=== PATIENT | male | born 1945 | race Caucasian/White ===

== ENCOUNTER → 2016-08-05 | Outpatient (CLI) | payer MEDICARE, OTHER ==
--- OUTSIDE RECORDS SUMMARY | 2016-08-05 15:27 | XMS REPORT | Continuity of Care Document ---
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 Indications: The patient had a raised,rolled up lesion with some slight keratotic tendency. This measured approximately 0.4 cm x 0.2 cm. It was approximately 1 cm from the takeoff of the helix along the undersurface of the anterior superior helical rim. Procedure in Detail: Consent was obtained. The area was prepped with Betadine. Xylocaine 1%, Marcaine 0.25% was infiltrated. Total volume was approximately 2 mL. At this point then, a tangential, superficial incision was made with a 15 blade down to the epidermal dermal junction. Hemostasis was obtained with the Bovie apparatus. The wound edges were approximately with 5-0 Vicryl suture. Specimen sent for permanent histopathology. Antibiotic ointment and sterile gauze dressing was applied. The patient tolerated this procedure. Return here in 10 days. Dictated By: Eileen Blanco MD DICTATED BY: Eileen Blanco cc: TR: [id number] DR: 09/30/2010 17:24:12 DE: 09/30/2010 22:02:28 JOB#: [id number] [Electronically Signed on 10.01.2010 04:37 pm] Eileen Blanco MD, MD </br> 09/29/2010 [Electronically Signed on 10.01.2010 04:37 pm] Eileen Blanco MD, MD [facility] Vital Signs Encounters Location Location Details Encounter Type Encounter Number Reason For Visit Attending Provider ADM Date DC Date Status Source [facility] [id number] PT CALLED./LEFT EAR EXC/POSS BX EILEEN BLANOC 03/2011 Active [facility] ( Outpatient) [id number] path EILEEN BLANCO 09/30/2010 09/30/2010 Active [facility] [id number] STITCH REMOVAL EILEEN BLANCO 10/07/2010 [facility] [id number] SCREEN FOR INSURANCE Blaise Johnson 11/19/2010 11/19/2010 Active [facility] Procedures Plan of Care Social History Assessment and Plan Family History Value Date Source Advance Directives Order Name Results Value Date Source
== END ==
LOC: RT 15:23
PROVIDERS: ATTEND Nurse Practitioner Family
DX: R06.00 Dyspnea, unspecified (principal)
CPT/HCPCS: 94060; 94726; 94729

== ENCOUNTER → 2016-09-28 | Outpatient (CLI) | payer OTHER, MEDICARE ==
[2016-09-28 12:37] LABS: BASOPHILS % (AUTO) 0 % (0-10); EOSINOPHILS # (AUTO) 0.2 10^3/uL (0.0-0.3); EOSINOPHILS % (AUTO) 2 % (0-10); LYMPHOCYTES # (AUTO) 1.5 X 10^3 (1.0-4.0); LYMPHOCYTES % (AUTO) 15 % (12-44); MEAN CORPUSCULAR HEMOGLOBIN 32 PG (25-34); MEAN CORPUSCULAR HGB CONC 35 G/DL (32-36); MEAN CORPUSCULAR VOLUME 92 FL (80-99); MEAN PLATELET VOLUME 9.9 FL (7.4-10.4); MONOCYTES # (AUTO) 0.8 X 10^3 (0.0-1.0); MONOCYTES % (AUTO) 8 % (0-12); NEUTROPHILS # (AUTO) 7.4 X 10^3 (1.8-7.8); NEUTROPHILS % (AUTO) 75 % (42-75); PLATELET COUNT 198 10^3/uL (130-400); RED BLOOD COUNT 4.47 10^6/uL (4.35-5.85); WHITE BLOOD COUNT 9.9 10^3/uL (4.3-11.0)
[2016-09-28 12:54] LABS: ALANINE AMINOTRANSFERASE 34 U/L (0-55); ALBUMIN 4.3 G/DL (3.2-4.5); ANION GAP 9 MMOL/L (5-14); ASPARTATE AMINO TRANSFERASE 21 U/L (5-34); BILIRUBIN,TOTAL 0.8 MG/DL (0.1-1.0); BLOOD UREA NITROGEN 25 MG/DL (7-18); BUN/CREATININE RATIO 23; CALCIUM 9.2 MG/DL (8.5-10.1); CARBON DIOXIDE 22 MMOL/L (21-32); CHLORIDE 107 MMOL/L (98-107); CREATININE SERUM 1.07 MG/DL (0.60-1.30); GFR ESTIMATED > 60; GLUCOSE 96 MG/DL (70-105); POTASSIUM 3.8 MMOL/L (3.6-5.0); SODIUM 138 MMOL/L (135-145); TOTAL PROTEIN 6.7 G/DL (6.4-8.2)
[2016-09-28 13:49] LABS: THYROID STIMULATING HORMONE 2.07 UIU/ML (0.35-4.94)
== END ==
LOC: CARD 11:59
PROVIDERS: ATTEND Internal Medicine
DX: R55 Syncope and collapse (principal)
CPT/HCPCS: 36415; 80053; 84443; 85025

== ENCOUNTER 2016-09-29 07:59 | Outpatient (RCR) | payer OTHER, MEDICARE | END 2016-12-28 | disposition home or self-care (01) | LOC: CARD 07:59 | PROVIDERS: ATTEND Internal Medicine | DX: R55 Syncope and collapse (principal) | CPT/HCPCS: 93225; 93226 ==

== ENCOUNTER → 2016-09-30 | Outpatient (CLI) | payer OTHER, MEDICARE ==
--- NOTE | 2016-10-03 13:25 | ECHOCARDIOGRAPHY REPORT ---
DATE OF SERVICE: 09/30/2016 A 2D ECHOCARDIOGRAM REFERRING PHYSICIAN: Dr. Barragan. MEASUREMENT: LVID end diastolic 4.5. IVS thickness 1.3. LVPW thickness 1.3. Left atrial diameter 4.0. Ejection fraction 60%. FINDINGS: 1. Technically difficult study. 2. The left ventricle is normal in size with mild to moderate left ventricular hypertrophy noted diffusely. Systolic function appeared to be normal. Estimated ejection fraction 60%. 3. The left atrium is in the upper normal limit in size. No clot or thrombus were seen within the left atrium. 4. The right atrium and right ventricle are normal in size. No clot or thrombus were seen within the right side. 5. Mitral valve is normal in morphology with mild mitral regurgitation noted by color Doppler flow. No mitral valve prolapse. No mitral valve stenosis. 6. Aortic valve leaflets were not well visualized. There is no significant aortic valve stenosis or regurgitation was seen. 7. Tricuspid valve leaflets were not well visualized. Mild tricuspid regurgitation was noted, Doppler across the tricuspid valve estimated pulmonary artery pressure of 24 plus right atrial pressure. 8. Pulmonic valve is functioning normally. 9. No pericardial effusion. CONCLUSION: 1. Normal left ventricular size, endocardium was not well visualized in all segments. Overall, systolic function appeared to be normal, estimated ejection fraction 60%. 2. Mild mitral regurgitation. 3. Estimated pulmonary artery pressure of 30 mmHg. Job ID: [id number] DocumentID: [id number] Dictated Date: 10/03/2016 08:17:34 Business Advisor Date: 10/03/2016 10:20:53 Dictated By: ENRY MATA MD
== END ==
LOC: CARD 14:22
PROVIDERS: ATTEND Internal Medicine Cardiovascular Disease
DX: I10 Essential (primary) hypertension (principal); G47.33 Obstructive sleep apnea (adult) (pediatric); E78.5 Hyperlipidemia, unspecified; R55 Syncope and collapse; I34.0 Nonrheumatic mitral (valve) insufficiency
CPT/HCPCS: 93306

== ENCOUNTER → 2016-10-03 | Outpatient (CLI) | payer OTHER, MEDICARE ==
[~2016-10-03] MED LIST: CATHETER FLUSH 10 ML SYR IV PRN; REGADENOSON 0.4 MG/5 ML SYR (LEXISCAN) IV ONE
== END ==
LOC: CARD 08:28
PROVIDERS: ATTEND Internal Medicine Cardiovascular Disease
DX: R55 Syncope and collapse (principal); E78.5 Hyperlipidemia, unspecified; I10 Essential (primary) hypertension; G47.33 Obstructive sleep apnea (adult) (pediatric)

== ENCOUNTER → 2016-10-05 | Outpatient (CLI) | payer OTHER, MEDICARE ==
[2016-10-05 13:10] VITALS: BP 143/83
--- NOTE | 2016-10-07 07:51 | STRESS TEST ---
DATE OF SERVICE: 10/05/2016 LEXISCAN MYOVIEW STRESS TEST REPORT REFERRING PHYSICIAN: Dr. Barragan. INDICATION: Syncope. Baseline heart rate is 70. Baseline blood pressure is 143/65. Baseline EKG is sinus rhythm with no ischemic changes. In summary, the patient was injected with 10.93 mCi of technetium-99 Myoview and the resting images were obtained. Then, the patient received 0.4 mg of Lexiscan followed by 31.0 mCi of technetium-99 Myoview. Throughout the test, there were no EKG changes. The resting and stress images were reviewed and compared in the short axis, horizontal long axis, and vertical long axis views. Review of the images showed apical thinning with no significant ischemia or infarction. SSS is 1, SDS 1, TID value 0.94. On the gated images, the left ventricle appeared to be normal size with normal contractility, calculated ejection fraction 46%. CONCLUSIONS: 1. The patient tolerated Lexiscan well. 2. Apical thinning with no significant ischemia or infarction on SPECT images. 3. Normal left ventricular size with normal contractility, calculated ejection fraction 46%. Job ID: [id number] DocumentID: [id number] Dictated Date: 10/05/2016 15:35:14 Pi/Senior Research Associate Date: 10/06/2016 06:35:09 Dictated By: NERY MATA MD
== END ==
LOC: CARD 11:34
PROVIDERS: ATTEND Internal Medicine Cardiovascular Disease
DX: R55 Syncope and collapse (principal); E78.5 Hyperlipidemia, unspecified; I10 Essential (primary) hypertension; G47.33 Obstructive sleep apnea (adult) (pediatric)
CPT/HCPCS: 78452; 93017

== ENCOUNTER 2016-10-20 10:01 | Outpatient (RCR) | payer OTHER, MEDICARE | END 2017-01-18 | disposition home or self-care (01) | LOC: CARD 10:01 | PROVIDERS: ATTEND Internal Medicine Cardiovascular Disease | DX: I49.3 Ventricular premature depolarization (principal); R06.02 Shortness of breath; R55 Syncope and collapse | CPT/HCPCS: 93225; 93226 ==

== ENCOUNTER 2019-12-06 08:07 | Day surgery (SDC) | payer BC, MEDICARE ==
--- NOTE | 2019-11-27 16:49 | HISTORY AND PHYSICAL ---
DATE OF SERVICE: COLONOSCOPY HISTORY AND PHYSICAL HISTORY OF PRESENT ILLNESS: The patient is a 74-year-old white male, seen in the office on 11/14/2019 with complaints of low back pain. He has 5 or 10 minutes typically of stiffness in the morning. It does not go on longer than that and he is not currently having any symptoms radiating down to the legs. After sitting episodes for extended periods of time this will aggravate his back pain. It is better with movement. He has had no night sweats, chills, fever or change in weight and is doing well post-total knee replacement. PAST MEDICAL HISTORY: Significant for hyperlipidemia and hypertension with no known history of coronary artery disease. He does report a past history of herpes simplex, it has been some time. It has been many years since he has had an outbreak, but he is concerned about asymptomatic viral shedding with dating somebody with potential new sexual partner. He inquired about prophylactic acyclovir to reduce transmission. PHYSICAL EXAMINATION: GENERAL: Reveals a white male, appeared to be in no acute distress. VITAL SIGNS: Weight 224 pounds, stable. Blood pressure 136/66. CHEST: Clear. CARDIOVASCULAR: Regular rate and rhythm without murmur, S3 or S4. ABDOMEN: Soft, supple without mass, organomegaly or tenderness. No spinous process pain to palpation is noted. There is decreased range of motion of the lumbar spine. No paraspinous muscle pain to palpation is noted. Gait is unremarkable. ASSESSMENT AND PLAN: 1. Mechanical low back pain. The patient was set up for formal physical therapy to get set up with core strengthening and stretching program. 2. Admission history of herpes simplex. We will initiate acyclovir 800 mg 1 to 4 hours prior to relations. If they are extended weekends or vacations, he is to take acyclovir b.i.d. for convenience. 3. The patient was set up for screening colonoscopy as it has been 10 years. The patient will keep a regular schedule follow up in mid November. Job ID: [id number] DocumentID: [id number] Dictated Date: 11/15/2019 15:03:46 Lead Operator Date: 11/15/2019 15:42:10 Dictated By: ARSENIO AVILA MD
[2019-12-06] VITALS (11 sets, daily range): BP systolic 93–121; BP diastolic 52–78
[~2019-12-06] VITALS: Ht 175 cm; Wt 100.0 kg
[~2019-12-06 08:07] MED LIST changes: +ACET-2267 PO; +ASCO-262 PO; +ASPI-983 PO; +ATOR40TA70 PO; -CATHETER FLUSH 10 ML SYR IV PRN; +CELE-63 PO; +D5 LR IV SOLUTION 1,000 ML IV STA; +DICL75TA2 PO; +FAMO20TA3 PO; +HYDR25TA4 PO; +IRON150C3 PO; +MELA10CA2 PO; +OMG1KC PO; +OXC5T PO; +PANT40TA3 PO; -REGADENOSON 0.4 MG/5 ML SYR (LEXISCAN) IV ONE; +TMSL.4C PO; +TR1C15 TOP; +TRAZ-227 PO; +[UNRECOGNIZED DRUG - CODE] PO
[2019-12-06] MEDS ORDERED: fentaNYL INJECTION 100 MCG/2 ML AMP IVP ONE (08:15)
[2019-12-06] MEDS ORDERED: LIDOCAINE JELLY 2% 6 ML SYRINGE MM PRN (08:15)
[2019-12-06] MEDS ORDERED: D5 LR IV SOLUTION 1,000 ML IV ONE (08:19)
--- NOTE | 2019-12-06 08:31 | Pre-Op Note & Conscious Sedat ---
Pre-Operative Progress Note H&P Reviewed The H&P was reviewed, patient examined and no changes noted. Date H&P Reviewed: Dec 06, 2019 Time H&P Reviewed: 08:31 Conscious Sedation Pre-Proced ASA Score 2 For ASA 3 and 4: Consider anesthesia and medical clearance. Also, for patients with a history of failed moderate sedation consider anesthesia. Airway Lungs Heart ASA score ASA 1: a normal healthy patient ASA 2: a patient with a mild systemic disease (mid diabetes, controlled hypertension, obesity ASA 3: a patient with a severe systemic disease that limits activity (angina, COPD, prior Myocardial infarction) ASA 4: a patient with an incapacitating disease that is a constant threat to life (CHF, renal failure) ASA 5: a moribund patient not expected to survive 24 hrs. (ruptured aneurysm) ASA 6: a declared brain- patient whose organs are being harvested. For emergent operations, add the letter E after the classification Mallampati Classification Grade 2 Sedation Plan Analgesia, Amnesia, Plan communicated to team members, Discussed options with patient/fam, Discussed risks with patient/fam The patient is an appropriate candidate to undergo the planned procedure, sedation, and anesthesia. The patient immediately re-assessed prior to indication. ARSENIO AVILA MD Dec 06, 2019 08:31
[2019-12-06] MEDS ORDERED: LIDOCAINE JELLY 2% 6 ML SYRINGE ONE (08:48)
[2019-12-06] MEDS ORDERED: MIDAZOLAM 5 MG/5 ML (VERSED) VIAL ONE (08:48)
[2019-12-06] MEDS ORDERED: fentaNYL INJECTION 100 MCG/2 ML AMP ONE (08:48)
[2019-12-06] MEDS: MIDAZOLAM 5 MG/5 ML (VERSED) VIAL IV PRN ×2 (08:53→08:58)
--- OUTSIDE RECORDS SUMMARY | 2019-12-06 10:14 | XMS REPORT | Clinical Summary ---
Author Author [facility] Organization [facility] Address Unknown Phone Unavailable Care Team Providers Care Piece Maker Name Role Phone PCP Unavailable Allergies Not on File Medications Not on file Active Problems Not on file Social History Date Tobacco Use Types Packs/Day Years Used Never Assessed Sex Assigned at Date Recorded Not on file Industry Job Start Date Occupation Not on file Not on file Not on file Travel End Travel History Travel Start No recent travel history available. Last Filed Vital Signs Not on file Plan of Treatment Not on file Results Not on filefrom Last 3 Months
--- OUTSIDE RECORDS SUMMARY | 2019-12-06 10:15 | XMS REPORT | Encounter Summary ---
Author Author [facility] Address Unknown Phone Unavailable Care Team Providers Care Forest Ecology Professor Name Role Phone PCP Unavailable Encounter Details Care Team Description Date Type Department Martin Brantley, DO [address] [place] [address] [phone] 09/29/2011 [facility] al Encounter [address] [place] [address] Social History Date Tobacco Use Types Packs/Day Years Used Never Assessed Sex Assigned at Date Recorded Not on file Industry Job Start Date Occupation Not on file Not on file Not on file Travel End Travel History Travel Start No recent travel history available. documented as of this encounter Plan of Treatment Not on filedocumented as of this encounter Procedures Comments Procedure Name Priority Date/Time Associated Diag nosis ELECTROLYTES Routine 09/28/2011 6:25 PM CDT documented in this encounter Results * Electrolytes (09/28/2011 6:25 PM CDT) Sodium 141 133 - 147 MEQ/L [facility] Potassium 4.9 3.5 - 5.1 MEQ/L [facility] Chloride 105 96 - 112 MEQ/L [facility] Carbon Dioxide 25 22 - 30 MEQ/L [facility] Anion Gap 12 3 - 15 [facility] Specimen Blood Performing Organization Address City/State/Zipcode Ph one Number [facility] [address] [place], [place] [address] [place] documented in this encounter Visit Diagnoses Not on filedocumented in this encounter
--- OUTSIDE RECORDS SUMMARY | 2019-12-06 10:15 | XMS REPORT | Continuity of Care Document ---
Author Organization Unknown Address Unknown Phone Unavailable Allergies Active Description Code Type Severity Reaction Onset Reported/Identified Relationship to Patient Clinical Status Yes No Allergy Information Available [id number] Drug Allergy Unknown N/A 017 Yes gabapentin [id number] Drug Allerg y Mild N/A 06/07/2019 Yes lisinopril [id number] Drug Allerg y Mild N/A 06/07/2019 Yes gabapentin [id number] Drug Allerg y Mild DISORIENTATION 11/29/2019 Yes lisinopril [id number] Drug Allerg y Mild COUGH 11/29/2019 Medications There is no data. Problems Date Dx Coded Attending Type Code Diagnosis Diagnosed By 08/08/2016 ZACK WOODY ANIMAL TREATMENT INVESTIGATOR Ot J45.909 UNSPECIFIED ASTHMA, UNCOMPLICATED 08/11/2016 ZACK WOODY ANIMAL TREATMENT INVESTIGATOR Ot R06.00 DYSPNEA, UNSPECIFIED 08/24/2016 ZACK WOODY ANIMAL TREATMENT INVESTIGATOR Ot R06.00 DYSPNEA, UNSPECIFIED 09/07/2016 ZACK WOODY ANIMAL TREATMENT INVESTIGATOR Ot R06.00 DYSPNEA, UNSPECIFIED 09/23/2016 ZACK WOODY ANIMAL TREATMENT INVESTIGATOR Ot R06.00 DYSPNEA, UNSPECIFIED 09/28/2016 MARGARITA GUTIERREZ, ARSENIO Vasques Ot R53. 83 OTHER FATIGUE 09/28/2016 ARSENIO BARRAGAN MD Ot R53. 83 OTHER FATIGUE 09/28/2016 ARSENIO BARRAGAN MD Ot R53. 83 OTHER FATIGUE 09/28/2016 ARSENIO BARRAGAN MD Ot R53. 83 OTHER FATIGUE 09/28/2016 ARSENIO BARRAGAN MD Ot R53. 83 OTHER FATIGUE 09/29/2016 ARSENIO BARRAGAN MD Ot R55 SYNCOPE AND COLLAPSE 09/29/2016 ARSENIO BARRAGAN MD, Ot R55 SYNCOPE AND COLLAPSE 09/30/2016 ARSENIO BARRAGAN MD, Ot R55 SYNCOPE AND COLLAPSE 09/30/2016 ARSENIO BARRAGAN MD, Ot R55 SYNCOPE AND COLLAPSE 10/03/2016 ADOLFO GUTIERREZ, NERY Sanchez Ot E78. 5 HYPERLIPIDEMIA, UNSPECIFIED 10/03/2016 NERY MATA MD Ot G47. 33 OBSTRUCTIVE SLEEP APNEA (ADULT) (PEDIATR 10/03/2016 NERY MATA MD Ot I10 ESSENTIAL (PRIMARY) HYPERTENSION 10/03/2016 NERY MATA MD Ot I34. 0 NONRHEUMATIC MITRAL (VALVE) INSUFFICIENC 10/03/2016 NERY MATA MD Ot R55 SYNCOPE AND COLLAPSE 10/06/2016 NERY MATA MD Ot E78. 5 HYPERLIPIDEMIA, UNSPECIFIED 10/06/2016 NERY MATA MD Ot G47. 33 OBSTRUCTIVE SLEEP APNEA (ADULT) (PEDIATR 10/06/2016 NERY MATA MD Ot I10 ESSENTIAL (PRIMARY) HYPERTENSION 10/06/2016 NERY MATA MD Ot I34. 0 NONRHEUMATIC MITRAL (VALVE) INSUFFICIENC 10/06/2016 NERY MATA MD Ot R55 SYNCOPE AND COLLAPSE 10/06/2016 NERY MATA MD Ot E78. 5 HYPERLIPIDEMIA, UNSPECIFIED 10/06/2016 NERY MATA MD Ot G47. 33 OBSTRUCTIVE SLEEP APNEA (ADULT) (PEDIATR 10/06/2016 NERY MATA MD Ot I10 ESSENTIAL (PRIMARY) HYPERTENSION 10/06/2016 NERY MATA MD Ot R55 SYNCOPE AND COLLAPSE 10/19/2016 ARSENIO BARRAGAN MD Ot R55 SYNCOPE AND COLLAPSE 10/21/2016 NERY MATA MD Ot I49. 3 VENTRICULAR PREMATURE DEPOLARIZATION 10/21/2016 NERY MATA MD Ot R06. 02 SHORTNESS OF BREATH 10/21/2016 NERY MATA MD Ot R55 SYNCOPE AND COLLAPSE 10/21/2016 NERY MATA MD Ot I49. 3 VENTRICULAR PREMATURE DEPOLARIZATION 10/21/2016 NERY MATA MD Ot R06. 02 SHORTNESS OF BREATH 10/21/2016 NERY MATA MD Ot R55 SYNCOPE AND COLLAPSE 11/08/2016 ARSENIO BARRAGAN MD Ot R55 SYNCOPE AND COLLAPSE 11/14/2016 ARSENIO BARRAGAN MD Ot R55 SYNCOPE AND COLLAPSE 11/14/2016 NERY MATA MD Ot E78. 5 HYPERLIPIDEMIA, UNSPECIFIED 11/14/2016 NERY MATA MD Ot G47. 33 OBSTRUCTIVE SLEEP APNEA (ADULT) (PEDIATR 11/14/2016 NERY MATA MD Ot I10 ESSENTIAL (PRIMARY) HYPERTENSION 11/14/2016 NERY MATA MD Ot I34. 0 NONRHEUMATIC MITRAL (VALVE) INSUFFICIENC 11/14/2016 NERY MATA MD Ot R55 SYNCOPE AND COLLAPSE 11/17/2016 ARSENIO BARRAGAN MD Ot R55 SYNCOPE AND COLLAPSE 12/07/2016 NERY MATA MD Ot I49. 3 VENTRICULAR PREMATURE DEPOLARIZATION 12/07/2016 NERY MATA MD Ot R06. 02 SHORTNESS OF BREATH 12/07/2016 NERY MATA MD Ot R55 SYNCOPE AND COLLAPSE 12/12/2016 ZACK WOODY APRN Ot R06.00 DYSPNEA, UNSPECIFIED 12/16/2016 NERY MATA MD Ot I49. 3 VENTRICULAR PREMATURE DEPOLARIZATION 12/16/2016 NERY MATA MD Ot R06. 02 SHORTNESS OF BREATH 12/16/2016 NERY MATA MD Ot R55 SYNCOPE AND COLLAPSE 12/20/2016 NERY MATA MD Ot E78. 5 HYPERLIPIDEMIA, UNSPECIFIED 12/20/2016 NERY MATA MD Ot G47. 33 OBSTRUCTIVE SLEEP APNEA (ADULT) (PEDIATR 12/20/2016 NERY MATA MD Ot I10 ESSENTIAL (PRIMARY) HYPERTENSION 12/20/2016 NERY MATA MD Ot R55 SYNCOPE AND COLLAPSE 12/28/2016 ARSENIO BARRAGAN MD Ot R55 SYNCOPE AND COLLAPSE 01/18/2017 NERY MATA MD Ot I49. 3 VENTRICULAR PREMATURE DEPOLARIZATION 01/18/2017 NERY MATA MD Ot R06. 02 SHORTNESS OF BREATH 01/18/2017 NERY MATA MD Ot R55 SYNCOPE AND COLLAPSE 06/07/2019 ARSENIO BARRAGAN MD Ot R55 SYNCOPE AND COLLAPSE 06/07/2019 NERY MATA MD Ot I49. 3 VENTRICULAR PREMATURE DEPOLARIZATION 06/07/2019 NERY MATA MD Ot R06. 02 SHORTNESS OF BREATH 06/07/2019 NERY MATA MD Ot R55 SYNCOPE AND COLLAPSE 06/12/2019 JUAN F FIGUEROA DO Ot D64.9 ANEMIA, UNSPECIFIED 06/12/2019 JUAN F FIGUEROA DO Ot E78.5 HYPERLIPIDEMIA, UNSPECIFIED 06/12/2019 HENRY VALE JUAN F Ot G47.33 OBSTRUCTIVE SLEEP APNEA (ADULT) (PEDIATR 06/12/2019 HENRY VALE, JUAN F Ot I10 ESSENTIAL (PRIMARY) HYPERTENSION 06/12/2019 HENRY VALE JUAN F Ot K59.09 OTHER CONSTIPATION 06/12/2019 HENRY VALE JUAN F Ot M75.10 1 UNSP ROTATR-CUFF TEAR/RUPTR OF RIGHT ARLIN 06/12/2019 AARON FIGUEROA DOI Ot N40.0 BENIGN PROSTATIC HYPERPLASIA WITHOUT LOW 06/12/2019 HENRY VALE JUAN F Ot Z47.1 AFTERCARE FOLLOWING JOINT REPLACEMENT ROCHA 06/12/2019 AARON FIGUEROA DOI Ot Z87.89 1 PERSONAL HISTORY OF NICOTINE DEPENDENCE 06/12/2019 JUAN F FIGUEROA DO Ot Z96.65 2 PRESENCE OF LEFT ARTIFICIAL KNEE JOINT 06/20/2019 ARSENIO BARRAGAN MD Ot R55 SYNCOPE AND COLLAPSE 06/20/2019 NERY MATA MD Ot E78. 5 HYPERLIPIDEMIA, UNSPECIFIED 06/20/2019 NERY MATA MD Ot G47. 33 OBSTRUCTIVE SLEEP APNEA (ADULT) (PEDIATR 06/20/2019 NERY MATA MD Ot I10 ESSENTIAL (PRIMARY) HYPERTENSION 06/20/2019 NERY MATA MD Ot R55 SYNCOPE AND COLLAPSE 06/20/2019 NERY MATA MD Ot E78. 5 HYPERLIPIDEMIA, UNSPECIFIED 06/20/2019 NERY MATA MD Ot G47. 33 OBSTRUCTIVE SLEEP APNEA (ADULT) (PEDIATR 06/20/2019 NERY MATA MD Ot I10 ESSENTIAL (PRIMARY) HYPERTENSION 06/20/2019 NERY MATA MD Ot I34. 0 NONRHEUMATIC MITRAL (VALVE) INSUFFICIENC 06/20/2019 NERY MATA MD Ot R55 SYNCOPE AND COLLAPSE 06/20/2019 NERY MATA MD Ot E78. 5 HYPERLIPIDEMIA, UNSPECIFIED 06/20/2019 NERY MATA MD Ot G47. 33 OBSTRUCTIVE SLEEP APNEA (ADULT) (PEDIATR 06/20/2019 NERY MATA MD Ot I10 ESSENTIAL (PRIMARY) HYPERTENSION 06/20/2019 NERY MATA MD Ot R55 SYNCOPE AND COLLAPSE 06/20/2019 ARSENIO BARRAGAN MD Ot R55 SYNCOPE AND COLLAPSE 06/20/2019 NERY MATA MD Ot I49. 3 VENTRICULAR PREMATURE DEPOLARIZATION 06/20/2019 NERY MATA MD Ot R06. 02 SHORTNESS OF BREATH 06/20/2019 NERY MATA MD Ot R55 SYNCOPE AND COLLAPSE 06/27/2019 ZACK WOODY APRN Ot R06.00 DYSPNEA, UNSPECIFIED 06/27/2019 ARSENIO BARRAGAN MD Ot R55 SYNCOPE AND COLLAPSE 06/27/2019 NERY MATA MD Ot E78. 5 HYPERLIPIDEMIA, UNSPECIFIED 06/27/2019 ADOLFO GUTIERREZ, NERY Sanchez Ot G47. 33 OBSTRUCTIVE SLEEP APNEA (ADULT) (PEDIATR 06/27/2019 NERY MATA MD Ot I10 ESSENTIAL (PRIMARY) HYPERTENSION 06/27/2019 NERY MATA MD Ot R55 SYNCOPE AND COLLAPSE 06/27/2019 NERY MATA MD Ot E78. 5 HYPERLIPIDEMIA, UNSPECIFIED 06/27/2019 NERY MATA MD Ot G47. 33 OBSTRUCTIVE SLEEP APNEA (ADULT) (PEDIATR 06/27/2019 NERY MATA MD Ot I10 ESSENTIAL (PRIMARY) HYPERTENSION 06/27/2019 NERY MATA MD Ot I34. 0 NONRHEUMATIC MITRAL (VALVE) INSUFFICIENC 06/27/2019 NERY MATA MD Ot R55 SYNCOPE AND COLLAPSE 06/27/2019 NERY MATA MD Ot E78. 5 HYPERLIPIDEMIA, UNSPECIFIED 06/27/2019 NERY MATA MD Ot G47. 33 OBSTRUCTIVE SLEEP APNEA (ADULT) (PEDIATR 06/27/2019 NERY MATA MD Ot I10 ESSENTIAL (PRIMARY) HYPERTENSION 06/27/2019 NERY MATA MD Ot R55 SYNCOPE AND COLLAPSE 06/27/2019 ARSENIO BARRAGAN MD Ot R55 SYNCOPE AND COLLAPSE 06/27/2019 NERY MATA MD Ot I49. 3 VENTRICULAR PREMATURE DEPOLARIZATION 06/27/2019 NERY MATA MD Ot R06. 02 SHORTNESS OF BREATH 06/27/2019 NERY MATA MD Ot R55 SYNCOPE AND COLLAPSE 07/05/2019 ZACK WOODY APRN Ot R06.00 DYSPNEA, UNSPECIFIED 07/05/2019 ARSENIO BARRAGAN MD Ot R55 SYNCOPE AND COLLAPSE 07/05/2019 NERY MATA MD Ot E78. 5 HYPERLIPIDEMIA, UNSPECIFIED 07/05/2019 ADOLFO GUTIERREZ, NERY Sanchez Ot G47. 33 OBSTRUCTIVE SLEEP APNEA (ADULT) (PEDIATR 07/05/2019 NERY MATA MD J Ot I10 ESSENTIAL (PRIMARY) HYPERTENSION 07/05/2019 NERY MATA MD J Ot R55 SYNCOPE AND COLLAPSE 07/05/2019 NERY MATA MD Ot E78. 5 HYPERLIPIDEMIA, UNSPECIFIED 07/05/2019 ADOLFO GUTIERREZ, NERY J Ot G47. 33 OBSTRUCTIVE SLEEP APNEA (ADULT) (PEDIATR 07/05/2019 NERY MATA MD J Ot I10 ESSENTIAL (PRIMARY) HYPERTENSION 07/05/2019 ADOLFO GUTIERREZ, NERY Sanchez Ot I34. 0 NONRHEUMATIC MITRAL (VALVE) INSUFFICIENC 07/05/2019 NERY MATA MD Ot R55 SYNCOPE AND COLLAPSE 07/05/2019 NERY MATA MD Ot E78. 5 HYPERLIPIDEMIA, UNSPECIFIED 07/05/2019 NERY MATA MD Ot G47. 33 OBSTRUCTIVE SLEEP APNEA (ADULT) (PEDIATR 07/05/2019 NERY MATA MD J Ot I10 ESSENTIAL (PRIMARY) HYPERTENSION 07/05/2019 NERY MATA MD J Ot R55 SYNCOPE AND COLLAPSE 07/05/2019 ARSENIO BARRAGAN MD Ot R55 SYNCOPE AND COLLAPSE 07/05/2019 NERY MATA MD Ot I49. 3 VENTRICULAR PREMATURE DEPOLARIZATION 07/05/2019 NERY MATA MD Ot R06. 02 SHORTNESS OF BREATH 07/05/2019 NERY MATA MD Ot R55 SYNCOPE AND COLLAPSE 09/04/2019 NERY MATA MD Ot E78. 5 HYPERLIPIDEMIA, UNSPECIFIED 09/04/2019 ADOLFO GUTIERREZ, NERY Sanchez Ot G47. 33 OBSTRUCTIVE SLEEP APNEA (ADULT) (PEDIATR 09/04/2019 NERY MATA MD J Ot I10 ESSENTIAL (PRIMARY) HYPERTENSION 09/04/2019 NERY MATA MD J Ot R55 SYNCOPE AND COLLAPSE 09/04/2019 ARSENIO BARRAGAN MD Ot R55 SYNCOPE AND COLLAPSE 09/04/2019 NERY MATA MD Ot I49. 3 VENTRICULAR PREMATURE DEPOLARIZATION 09/04/2019 NERY MATA MD J Ot R06. 02 SHORTNESS OF BREATH 09/04/2019 NERY MATA MD J Ot R55 SYNCOPE AND COLLAPSE 11/18/2019 ZACK WOODY APRN Ot R06.00 DYSPNEA, UNSPECIFIED 11/18/2019 ARSENIO BARRAGAN MD Ot R55 SYNCOPE AND COLLAPSE 11/18/2019 NERY MATA MD Ot E78. 5 HYPERLIPIDEMIA, UNSPECIFIED 11/18/2019 NERY MATA MD Ot G47. 33 OBSTRUCTIVE SLEEP APNEA (ADULT) (PEDIATR 11/18/2019 NERY MATA MD Ot I10 ESSENTIAL (PRIMARY) HYPERTENSION 11/18/2019 NERY MATA MD Ot R55 SYNCOPE AND COLLAPSE 11/18/2019 NERY MATA MD Ot E78. 5 HYPERLIPIDEMIA, UNSPECIFIED 11/18/2019 NERY MATA MD Ot G47. 33 OBSTRUCTIVE SLEEP APNEA (ADULT) (PEDIATR 11/18/2019 NEYR MATA MD Ot I10 ESSENTIAL (PRIMARY) HYPERTENSION 11/18/2019 NERY MATA MD Ot I34. 0 NONRHEUMATIC MITRAL (VALVE) INSUFFICIENC 11/18/2019 NERY MATA MD Ot R55 SYNCOPE AND COLLAPSE 11/18/2019 NERY MATA MD Ot E78. 5 HYPERLIPIDEMIA, UNSPECIFIED 11/18/2019 NERY MATA MD Ot G47. 33 OBSTRUCTIVE SLEEP APNEA (ADULT) (PEDIATR 11/18/2019 NERY MATA MD Ot I10 ESSENTIAL (PRIMARY) HYPERTENSION 11/18/2019 NERY MATA MD Ot R55 SYNCOPE AND COLLAPSE 11/18/2019 ARSENIO BARRAGAN MD Ot R55 SYNCOPE AND COLLAPSE 11/18/2019 NERY MATA MD Ot I49. 3 VENTRICULAR PREMATURE DEPOLARIZATION 11/18/2019 NERY MATA MD Ot R06. 02 SHORTNESS OF BREATH 11/18/2019 NERY MATA MD Ot R55 SYNCOPE AND COLLAPSE 11/29/2019 ARSENIO BARRAGAN MD Ot Z01.818 ENCOUNTER FOR OTHER PREPROCEDURAL EXAMIN 11/29/2019 ARSENIO BARRAGAN MD Ot R55 SYNCOPE AND COLLAPSE 11/29/2019 NERY MATA MD Ot I49. 3 VENTRICULAR PREMATURE DEPOLARIZATION 11/29/2019 NERY MATA MD Ot R06. 02 SHORTNESS OF BREATH 11/29/2019 ADOLFO MD, BASHAR J Ot R55 SYNCOPE AND COLLAPSE 11/29/2019 MARGARITA GTUIERREZ, ARSENIO Vasques Ot Z01.818 ENCOUNTER FOR OTHER PREPROCEDURAL EXAMIN 11/29/2019 ARSENIO BARRAGAN MD, Ot Z01.818 ENCOUNTER FOR OTHER PREPROCEDURAL EXAMIN 11/29/2019 ARSENIO BARRAGAN MD, Ot Z01.818 ENCOUNTER FOR OTHER PREPROCEDURAL EXAMIN Procedures There is no data. Results Test Result Range Complete blood count (CBC) with automate d white blood cell (WBC) differential - 09/28/16 12:31 Blood leukocytes automated count (number/volume) 9.9 10*3/uL 4.3-11.0 Blood erythrocytes automated count (number/volume) 4.47 10*6/uL 4.35-5.85 Venous blood hemoglobin measurement (mass/volume) 14.3 g/dL 13.3-17.7 Blood hematocrit (volume fraction) 41 % 40-54 Automated erythrocyte mean corpuscular volume 92 [ foz_us] 80-99 Automated erythrocyte mean corpuscular h emoglobin (mass per erythrocyte) 32 pg 25-34 Automated erythrocyte mean corpuscular h emoglobin concentration measurement (mass/volume) 35 g/dL 32-36 Automated erythrocyte distribution width ratio 13. 0 % 10.0- 14.5 Automated blood platelet count (count/volume) 198 10*3/uL 130-400 Automated blood platelet mean volume measurement 9.9 [foz_us] 7.4-10.4 Automated blood neutrophils/100 leukocytes 75 % 42-75 Automated blood lymphocytes/100 leukocytes 15 % 12-44 Blood monocytes/100 leukocytes 8 % 0-12 Automated blood eosinophils/100 leukocytes 2 % 0-10 Automated blood basophils/100 leukocytes 0 % 0-10 Blood neutrophils automated count (number/volume) 7.4 10*3 1.8-7.8 Blood lymphocytes automated count (number/volume) 1.5 10*3 1.0-4.0 Blood monocytes automated count (number/volume) 0. 8 10*3 0.0-1.0 Automated eosinophil count 0.2 10*3/uL 0 .0-0.3 Automated blood basophil count (count/volume) 0.0 10*3/uL 0.0-0.1 Comprehensive metabolic panel - 09/28/16 12:31 Serum or plasma sodium measurement (moles/volume) 138 mmol/L 135-145 Serum or plasma potassium measurement (moles/volume) 3.8 mmol/L 3.6-5.0 Serum or plasma chloride measurement (moles/volume) 107 mmol/L 98-107 Carbon dioxide 22 mmol/L 21-32 Serum or plasma anion gap determination (moles/volume) 9 mmol/L 5-14 Serum or plasma urea nitrogen measurement (mass/volume ) 25 mg/dL 7-18 Serum or plasma creatinine measurement (mass/volume) 1.07 mg/dL 0.60-1.30 Serum or plasma urea nitrogen/creatinine mass ratio 23 NRG Serum or plasma creatinine measurement w ith calculation of estimated glomerular filtration rate > NRG Serum or plasma glucose measurement (mass/volume) 96 mg/dL 70-105 Serum or plasma calcium measurement (mass/volume) 9.2 mg/dL 8.5-10.1 Serum or plasma total bilirubin measurement (mass/volu me) 0.8 mg/dL 0.1-1.0 Serum or plasma alkaline phosphatase pete surement (enzymatic activity/volume) 67 U/L 40-136 Serum or plasma aspartate aminotransfera se measurement (enzymatic activity/volume) 21 U/L 5-34 Serum or plasma alanine aminotransferase measurement (enzymatic activity/volume) 34 U/L 0-55 Serum or plasma protein measurement (mass/volume) 6.7 g/dL 6.4-8.2 Serum or plasma albumin measurement (mass/volume) 4.3 g/dL 3.2-4.5 THYROID STIMULATING HORMONE - 09/28/16 1 2:31 THYROID STIMULATING HORMONE 2.07 u[iU]/mL 0.35-4.94 Complete blood count (CBC) with automate d white blood cell (WBC) differential - 06/08/19 05:21 Blood leukocytes automated count (number/volume) 5.7 10*3/uL 4.3-11.0 Blood erythrocytes automated count (number/volume) 2.96 10*6/uL 4.35-5.85 Venous blood hemoglobin measurement (mass/volume) 9.5 g/dL 13.3-17.7 Blood hematocrit (volume fraction) 28 % 40-54 Automated erythrocyte mean corpuscular volume 95 [ foz_us] 80-99 Automated erythrocyte mean corpuscular h emoglobin (mass per erythrocyte) 32 pg 25-34 Automated erythrocyte mean corpuscular h emoglobin concentration measurement (mass/volume) 34 g/dL 32-36 Automated erythrocyte distribution width ratio 12. 7 % 10.0- 14.5 Automated blood platelet count (count/volume) 164 10*3/uL 130-400 Automated blood platelet mean volume measurement 10.4 [foz_us] 7.4-10.4 Automated blood neutrophils/100 leukocytes 65 % 42-75 Automated blood lymphocytes/100 leukocytes 17 % 12-44 Blood monocytes/100 leukocytes 14 % 0-12 Automated blood eosinophils/100 leukocytes 4 % 0-10 Automated blood basophils/100 leukocytes 0 % 0-10 Blood neutrophils automated count (number/volume) 3.7 10*3 1.8-7.8 Blood lymphocytes automated count (number/volume) 1.0 10*3 1.0-4.0 Blood monocytes automated count (number/volume) 0. 8 10*3 0.0-1.0 Automated eosinophil count 0.3 10*3/uL 0 .0-0.3 Automated blood basophil count (count/volume) 0.0 10*3/uL 0.0-0.1 Comprehensive metabolic panel - 06/08/19 05:21 Serum or plasma sodium measurement (moles/volume) 137 mmol/L 135-145 Serum or plasma potassium measurement (moles/volume) 4.2 mmol/L 3.6-5.0 Serum or plasma chloride measurement (moles/volume) 105 mmol/L 98-107 Carbon dioxide 22 mmol/L 21-32 Serum or plasma anion gap determination (moles/volume) 10 mmol/L 5-14 Serum or plasma urea nitrogen measurement (mass/volume ) 16 mg/dL 7-18 Serum or plasma creatinine measurement (mass/volume) 0.86 mg/dL 0.60-1.30 Serum or plasma urea nitrogen/creatinine mass ratio 19 NRG Serum or plasma creatinine measurement w ith calculation of estimated glomerular filtration rate > NRG Serum or plasma glucose measurement (mass/volume) 90 mg/dL 70-105 Serum or plasma calcium measurement (mass/volume) 8.3 mg/dL 8.5-10.1 Serum or plasma total bilirubin measurement (mass/volu me) 0.7 mg/dL 0.1-1.0 Serum or plasma alkaline phosphatase pete surement (enzymatic activity/volume) 54 U/L 40-136 Serum or plasma aspartate aminotransfera se measurement (enzymatic activity/volume) 15 U/L 5-34 Serum or plasma alanine aminotransferase measurement (enzymatic activity/volume) 13 U/L 0-55 Serum or plasma protein measurement (mass/volume) 5.3 g/dL 6.4-8.2 Serum or plasma albumin measurement (mass/volume) 3.3 g/dL 3.2-4.5 CALCIUM CORRECTED 8.9 mg/dL 8.5-10.1 IRON TEST - 06/08/19 05:21 Serum or plasma iron measurement (mass/volume) 23 % 40-180 Complete blood count (CBC) with automate d white blood cell (WBC) differential - 06/10/19 04:40 Blood leukocytes automated count (number/volume) 6.6 10*3/uL 4.3-11.0 Blood erythrocytes automated count (number/volume) 3.39 10*6/uL 4.35-5.85 Venous blood hemoglobin measurement (mass/volume) 10.7 g/dL 13.3-17.7 Blood hematocrit (volume fraction) 32 % 40-54 Automated erythrocyte mean corpuscular volume 93 [ foz_us] 80-99 Automated erythrocyte mean corpuscular h emoglobin (mass per erythrocyte) 32 pg 25-34 Automated erythrocyte mean corpuscular h emoglobin concentration measurement (mass/volume) 34 g/dL 32-36 Automated erythrocyte distribution width ratio 12. 3 % 10.0- 14.5 Automated blood platelet count (count/volume) 218 10*3/uL 130-400 Automated blood platelet mean volume measurement 9.5 [foz_us] 7.4-10.4 Automated blood neutrophils/100 leukocytes 64 % 42-75 Automated blood lymphocytes/100 leukocytes 18 % 12-44 Blood monocytes/100 leukocytes 14 % 0-12 Automated blood eosinophils/100 leukocytes 4 % 0-10 Automated blood basophils/100 leukocytes 0 % 0-10 Blood neutrophils automated count (number/volume) 4.2 10*3 1.8-7.8 Blood lymphocytes automated count (number/volume) 1.2 10*3 1.0-4.0 Blood monocytes automated count (number/volume) 0. 9 10*3 0.0-1.0 Automated eosinophil count 0.3 10*3/uL 0 .0-0.3 Automated blood basophil count (count/volume) 0.0 10*3/uL 0.0-0.1 Comprehensive metabolic panel - 06/10/19 04:40 Serum or plasma sodium measurement (moles/volume) 137 mmol/L 135-145 Serum or plasma potassium measurement (moles/volume) 4.0 mmol/L 3.6-5.0 Serum or plasma chloride measurement (moles/volume) 102 mmol/L 98-107 Carbon dioxide 24 mmol/L 21-32 Serum or plasma anion gap determination (moles/volume) 11 mmol/L 5-14 Serum or plasma urea nitrogen measurement (mass/volume ) 19 mg/dL 7-18 Serum or plasma creatinine measurement (mass/volume) 0.99 mg/dL 0.60-1.30 Serum or plasma urea nitrogen/creatinine mass ratio 19 NRG Serum or plasma creatinine measurement w ith calculation of estimated glomerular filtration rate > NRG Serum or plasma glucose measurement (mass/volume) 97 mg/dL 70-105 Serum or plasma calcium measurement (mass/volume) 8.7 mg/dL 8.5-10.1 Serum or plasma total bilirubin measurement (mass/volu me) 0.9 mg/dL 0.1-1.0 Serum or plasma alkaline phosphatase pete surement (enzymatic activity/volume) 55 U/L 40-136 Serum or plasma aspartate aminotransfera se measurement (enzymatic activity/volume) 18 U/L 5-34 Serum or plasma alanine aminotransferase measurement (enzymatic activity/volume) 16 U/L 0-55 Serum or plasma protein measurement (mass/volume) 5.8 g/dL 6.4-8.2 Serum or plasma albumin measurement (mass/volume) 3.4 g/dL 3.2-4.5 CALCIUM CORRECTED 9.2 mg/dL 8.5-10.1 Encounters ACCT No. Visit Date/Time Discharge Status Pt. Type Provider Facility Loc./Unit Complaint [id number] 06/17/2019 09:30:00 06/17/2019 23:59: 59 CLS Outpatient Arsenio Barragan [facility] [id number] 12/03/2019 05:35:00 10:49:00 DIS Outpatient ARSENIO BARRAGAN MD [facility] PREOP SCREENING [id number] 11/22/2019 11:45:00 07/03/2 020 23:59:59 CLS Preadmit ARSENIO BARRAGAN MD [facility] REHAB MECHANICAL LOW BACK CT N [id number] 06/07/2019 17:00:00 020 10:00:00 DIS Inpatient JUAN F FIGUEROA DO, [facility] IRF S/P LEFT TKR [id number] 12/06/2018 13:51:00 019 23:59:59 CLS Preadmit ARSENIO BARRAGAN MD [facility] RAD SCREENING, HTN, PAST SM OKING HX [id number] 01/19/2017 10:00:00 017 23:59:59 CLS Preadmit NERY MATA MD [facility] CARD R06.02 SOB [id number] 10/20/2016 10:01:00 017 00:01:00 DIS Outpatient NERY MATA MD [facility] CARD R06.02 SOB [id number] 12/29/2016 08:15:00 017 23:59:59 CLS Preadmit ARSENIO BARRAGAN MD [facility] CARD SYNCOPE [id number] 09/29/2016 07:59:00 017 00:01:00 DIS Outpatient ARSENIO BARRAGAN MD [facility] CARD SYNCOPE [id number] 11/10/2016 09:38:00 017 23:59:59 CLS Preadmit NERY MATA MD [facility] CARD HLP E78.5,HTN I10,SYNCO PE R55 [id number] 10/05/2016 11:34:00 017 23:59:59 CLS Outpatient NERY MATA MD [facility] CARD SYNCOPE [id number] 10/03/2016 08:30:00 017 23:59:59 CLS Outpatient NERY MATA MD [facility] CARD SYNCOPE [id number] 09/30/2016 14:22:00 017 23:59:59 CLS Outpatient NERY MATA MD [facility] CARD R55 [id number] 09/28/2016 11:59:00 017 23:59:59 CLS Outpatient ARSENIO BARRAGAN MD [facility] CARD SYNCOPE [id number] 08/05/2016 15:23:00 017 23:59:59 CLS Outpatient ZACK WOODY APRN [facility] RT DYSPNEA,UNSPECI FIED [id number] 12/06/2019 11:15:00 P EN Preadmit ARSENIO BARRAGAN MD [facility] ENDO SCREENING.
--- NOTE | 2019-12-06 17:04 | OPERATIVE REPORT ---
DATE OF SERVICE: COLONOSCOPY SUMMARY PRIMARY CARE PROVIDER: Arsenio Avila MD INDICATION FOR THE PROCEDURE: Screening colonoscopy. DESCRIPTION OF PROCEDURE: The patient was placed in the left lateral decubitus position. Prior to undergoing colonoscopy, digital rectal evaluation was performed. Anal sphincter tone was normal and the perianal reflexes intact. Prostate is mildly enlarged, anodular and nontender to digital inspection. FINDINGS: No evidence for internal or external hemorrhoids were noted. The patient did have evidence for some mild rectal prolapse. No rectal mucosal abnormalities were noted. The sigmoid colon revealed a few small diverticulum without evidence for diverticulitis. No other sigmoid colonic abnormalities were appreciated. The descending colon was unremarkable. Present in the splenic flexure was a diminutive 2 mm sessile hyperplastic appearing polyp, was biopsied and ablated. There was no subsequent blood loss. In the transverse colon, hepatic flexure, ascending colon and cecum were unremarkable. ASSESSMENT: 1. The patient did have findings compatible with mild rectal prolapse with no rectal mucosal irritation being apparent. There was no evidence for internal or external hemorrhoids 2. One diminutive hyperplastic appearing polyp was biopsied and ablated present in the splenic flexure. Mild diverticular disease confined to the sigmoid colon was present without evidence for diverticulitis. No other abnormalities noted on today's procedure. We would advocate consideration for repeat screening colonoscopy in 10 years. The patient is not aware of any family history for colon cancer. Job ID: [id number] DocumentID: [id number] Dictated Date: 12/06/2019 11:02:04 [employer] Date: 12/06/2019 17:03:31 Dictated By: ARSENIO AVILA MD MTDD
== END 2019-12-06 10:17 | disposition home or self-care (01) ==
LOC: ENDO 08:07
PROVIDERS: ATTEND Internal Medicine
DX: Z12.11 Encounter for screening for malignant neoplasm of colon (principal); D12.3 Benign neoplasm of transverse colon; N40.0 Benign prostatic hyperplasia without lower urinary tract symptoms; K62.3 Rectal prolapse; K57.30 Diverticulosis of large intestine without perforation or abscess without bleeding; E78.5 Hyperlipidemia, unspecified; I10 Essential (primary) hypertension; M54.5 Low back pain; Z96.659 Presence of unspecified artificial knee joint; Z79.899 Other long term (current) drug therapy
CPT/HCPCS: 88305

== ENCOUNTER → 2020-01-29 | Day surgery (SDC) | payer BC, MEDICARE ==
[~2020-01-29] VITALS: Ht 175.3 cm; Wt 103.6 kg
[~2020-01-29] MED LIST changes: +ASPI-1238 PO; -ASPI-983 PO; -D5 LR IV SOLUTION 1,000 ML IV STA; +LIDOCAINE 1% INJ 20 ML 20 ML VIAL ONE
[2020-01-29 11:32] VITALS: BP 135/64
--- NOTE | 2020-01-29 12:18 | Implantation of Loop Monitor ---
Implant of Loop Monitior IMPLANTATION OF LOOP MONITOR REPORT DATE OF PROCEDURE: 01/29/20 PREOP DIAGNOSIS: Syncope, ventricular tachycardia POSTOP DIAGNOSIS: Syncope, ventricular tachycardia PROCEDURE DETAILS: The patient is a 74 male with history of ventricular tachycardia, has been having recurrent syncope requiring long-term surveillance. Therefore implantable loop recorder was discussed and agreed with the patient. Informed consent was taken. All risks and complications were discussed at length. The patient was draped and prepped in the usual sterile fashion. Local anesthesia was lidocaine, which was given in the substernal area close to the 4th intercostal space. Loop monitor [employer] with serial number [id number] was implanted according to the protocol. Steri-Strips were placed at the end of the procedure. There were no complications and the patient tolerated the procedure well. ANESTHESIA: Local anesthesia with lidocaine. COMPLICATIONS: None CONTRAST/FLUOROSCOPY: None CONCLUSION: Successful implantation of loop monitor with no complication FINAL DIAGNOSIS: Syncope Palpitation Ventricular tachycardia Hypertension NERY MATA MD Jan 29, 2020 12:18 pm
== END | disposition home or self-care (01) ==
LOC: CATH 11:16
PROVIDERS: ATTEND Internal Medicine Cardiovascular Disease
DX: R55 Syncope and collapse (principal); I47.2 Ventricular tachycardia; R00.2 Palpitations; I10 Essential (primary) hypertension; E78.2 Mixed hyperlipidemia; I49.5 Sick sinus syndrome; R60.9 Edema, unspecified; I65.23 Occlusion and stenosis of bilateral carotid arteries; G47.33 Obstructive sleep apnea (adult) (pediatric); Z85.828 Personal history of other malignant neoplasm of skin; Z79.899 Other long term (current) drug therapy; Z87.891 Personal history of nicotine dependence
CPT/HCPCS: 33285; C1764

== ENCOUNTER 2020-01-30 16:01 | Outpatient (RCR) | payer BC, MEDICARE ==
[~2020-01-30 16:01] MED LIST changes: -LIDOCAINE 1% INJ 20 ML 20 ML VIAL ONE; -PANT40TA3 PO; +PANT40TA52 PO
== END 2020-03-05 09:41 | disposition home or self-care (01) ==
PROVIDERS: ATTEND Internal Medicine
DX: M54.5 Low back pain (principal); M77.8 Other enthesopathies, not elsewhere classified

== ENCOUNTER → 2020-04-03 | Outpatient (CLI) | payer BC, MEDICARE ==
[~2020-04-03] MED LIST changes: +CETI10TA49 PO; +MTP25TSR PO
== END ==
LOC: RT 08:00
PROVIDERS: ATTEND Internal Medicine
DX: J84.10 Pulmonary fibrosis, unspecified (principal)
CPT/HCPCS: 94060; 94726; 94729

== ENCOUNTER 2020-04-08 12:19 | Day surgery (SDC) | payer BC, MEDICARE ==
[2020-04-08] VITALS (9 sets, daily range): BP systolic 104–144; BP diastolic 54–71
[~2020-04-08] VITALS: Ht 175 cm; Wt 104.0 kg
[~2020-04-08 12:19] MED LIST changes: -CETI10TA49 PO; -MTP25TSR PO
[2020-04-08] MEDS ORDERED: HEParin (CATH LAB) 2,000 ML IV ONE (12:23)
[2020-04-08] MEDS ORDERED: LIDOCAINE 1% INJ 20 ML 20 ML VIAL ONE (12:23)
[2020-04-08] MEDS ORDERED: NS IV 1000 ML 1,000 ML ONE (12:23)
[2020-04-08] MEDS ORDERED: NS IV 1000 ML 1,000 ML IV SCH ×2 (12:25→15:04)
--- NOTE | 2020-04-08 12:59 | Diagnostic Imaging Report ---
INDICATION: V TACH COMPARISON: None FINDINGS: Single frontal view of the chest demonstrates normal heart size and pulmonary vascularity. The lungs are well aerated and clear. No large pleural effusion or pneumothorax is seen. The visualized osseous structures show no acute abnormalities. IMPRESSION: 1. No acute cardiopulmonary process. Dictated by: Dictated on workstation # [id number]
[2020-04-08 13:01] LABS: HEMOGLOBIN 13.8 g/dL (13.3-17.7); WHITE BLOOD COUNT 5.3 10^3/uL (4.3-11.0)
[2020-04-08 13:13] LABS: BILIRUBIN,URINE NEGATIVE (NEGATIVE); CLARITY,URINE CLEAR; COLOR,URINE YELLOW; GLUCOSE, URINE (UA) NEGATIVE (NEGATIVE); KETONES,URINE NEGATIVE (NEGATIVE); LEUKOCYTE ESTERASE ,URINE NEGATIVE (NEGATIVE); NITRITE,URINE NEGATIVE (NEGATIVE); PROTEIN,URINE NEGATIVE (NEGATIVE)
[2020-04-08 13:19] LABS: PROTHROMBIN TIME PATIENT 13.1 SEC (12.2-14.7)
[2020-04-08] MEDS ORDERED: CETI10TA49 PO (13:21)
[2020-04-08] MEDS ORDERED: MTP25TSR PO (13:21)
[2020-04-08 13:26] LABS: ALANINE AMINOTRANSFERASE 28 U/L (0-55); ALBUMIN 4.2 GM/DL (3.2-4.5); ALKALINE PHOSPHATASE 69 U/L (40-136); BILIRUBIN,TOTAL 0.6 MG/DL (0.1-1.0); BUN/CREATININE RATIO 16; CALCIUM 8.8 MG/DL (8.5-10.1); CARBON DIOXIDE 26 MMOL/L (21-32); CHLORIDE 102 MMOL/L (98-107); CHOLESTEROL 187 MG/DL (< 200); CREATININE SERUM 0.94 MG/DL (0.60-1.30); GFR ESTIMATED > 60; GLUCOSE 98 MG/DL (70-105); HDL CHOLESTEROL 76 MG/DL (40-60); POTASSIUM 3.7 MMOL/L (3.6-5.0); SODIUM 138 MMOL/L (135-145); TOTAL PROTEIN 6.8 GM/DL (6.4-8.2); TRIGLYCERIDES 56 MG/DL (<150); VLDL CHOLESTEROL 11 MG/DL (5-40)
--- NOTE | 2020-04-08 13:27 | NUR ---
I SPOKE WITH THE PATIENT AND CALLED [facility] TO HELP ME COMPLETE THIS MED REC. 03/10/20 TAMSULOSIN 0.4MG #180/90DS 03/10/20 ATORVASTATIN 40MG #90/90DS 03/10/20 HYDROCHLOROTHIAZIDE 25MG #90/90DS 03/12/20 TRAZODONE 100MG #90/90DS 03/31/20 TOPROL-XL 25MG #90/90DS OTC: VITAMIN C FISH OIL ZYRTEC TYLENOL EXTRA STRENGTH FAMOTIDINE MELATONIN
[2020-04-08 13:57] LABS: BACTERIA,URINE TRACE /HPF; SQUAMOUS EPITHELIAL CELL,UR 0-2 /HPF; WBC,URINE 0-2 /HPF
[2020-04-08] MEDS ORDERED: fentaNYL INJECTION 100 MCG/2 ML AMP ONE (14:12)
[2020-04-08] MEDS ORDERED: HEParin 1000 UNIT/ML (10ML VIAL) FOR BOLUS ONE (14:13)
[2020-04-08] MEDS ORDERED: NITRO DRIP 25000 MCG/D5W 250 ML IV ONE (14:14)
[2020-04-08] MEDS ORDERED: VERAPAMIL 5 MG/2 ML (CALAN) VIAL IV ONE (14:14)
[2020-04-08] MEDS ORDERED: MIDAZOLAM 5 MG/5 ML (VERSED) VIAL ONE (14:14)
--- NOTE | 2020-04-08 15:05 | Discharge Inst-Post CATH ---
Discharge Inst-CATH/EP Problems Reviewed?: Yes Post Cardiac Cath/EP D/C Inst Follow Up/Plan Appointment with Dr. MATA's office in 4 weeks <b>CARDIAC CATH/EP PROCEDURE DISCHARGE INSTRUCTIONS</b> ACTIVITY * Go Home directly and rest. * Limit activity of the leg (or wrist if it was used) for 7 days including aerobics, swimming, jogging, bicycling, etc. * Restrict stair-climbing for 7 days if possible, if not, climb up with your non-cath leg, then bring together on the same step. * Avoid lifting, pushing, pulling or excessive movement of the affected extremity for 7 days. * Customary sexual activity may be resumed after 2 days-use caution not to use a position that strains or causes pain to the affected extremity. * No driving for 24 hours. * NO SMOKING. * Avoid straining for bowel movements for 7 days. * Gentle walking on level ground is allowed. * Returning to work will depend on the type of procedure and the results. Your doctor will discuss this with you. CALL YOUR DOCTOR FOR ANY OF THE FOLLOWING: *If bleeding from the puncture site occurs- Apply gentle pressure to site with clean cloth and call your doctor or EMS. * If a knot or lump forms under the skin, increases in size, or causes pain. * If bruising appears to be worsening or moving further down your leg instead of disappearing. * Temperature above 101 F. CARE OF YOUR GROIN INCISION; * Bruising or purple discoloration of the skin near the puncture site is common. * You may shower only, no bathtub bathing for 5 days. Be careful to avoid slipping as your leg may feel stiff. * If a closure device was used on your femoral artery, please see the attached guide regarding care of the device and your leg. * Leave dressing on FOR 24 hours. CARE OF YOUR WRIST INCISION; * Bruising or purple discoloration of the skin near the puncture site is common. * You may shower. * DO NOT submerge wrist. * Leave dressing on FOR 24 hours. NERY MATA MD Apr 08, 2020 15:05
--- NOTE | 2020-04-08 15:06 | Cardiac Procedure Note-CS/ASA ---
Pre-Procedure Note Pre-Op Procedure Note H&P Reviewed The H&P was reviewed, patient examined and no changes noted. Date H&P Reviewed: Apr 08, 2020 Time H&P Reviewed: 14:00 Conscious Sedation Pre-Proced Time 14:00 ASA Score 3 For ASA 3 and 4: Consider anesthesia and medical clearance. Also, for patients with a history of failed moderate sedation consider anesthesia. Airway Lungs Heart ASA score ASA 1: a normal healthy patient ASA 2: a patient with a mild systemic disease (mid diabetes, controlled hypertension, obesity x ASA 3: a patient with a severe systemic disease that limits activity (angina, COPD, prior Myocardial infarction) ASA 4: a patient with an incapacitating disease that is a constant threat to life (CHF, renal failure) ASA 5: a moribund patient not expected to survive 24 hrs. (ruptured aneurysm) ASA 6: a declared brain- patient whose organs are being harvested. For emergent operations, add the letter E after the classification Mallampati Classification Grade 3 Sedation Plan Analgesia, Amnesia, Plan communicated to team members, Discussed options with patient/fam, Discussed risks with patient/fam The patient is an appropriate candidate to undergo the planned procedure, sedation, and anesthesia. The patient immediately re-assessed prior to indication. NERY MATA MD Apr 08, 2020 15:06
--- NOTE | 2020-04-08 15:09 | Cardiac Cath Report ---
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 Was asymptomatic during the episode. Referred for EP evaluation and coronary angiogram was recommended. After explaining the procedure to the patient, all pros and cons were explained, all questions were answered. The patient signed the consent and then he was placed on the cardiac catheterization laboratory. Groin was prepped SL fashion local anesthesia was used. Sheath placed in the right femoral artery, Regina catheter was used, advanced to the left ventricular cavity, pressure was measured, left ventricular gram was done, pullback LV to aorta was done, advanced to the left coronary system and the right coronary system and selective angiogram was done. At the end of the procedure the sheath was removed. Vascular band was used FINDINGS: Hemodynamics LV 101/21, end-diastolic pressure of 21 Aorta 95/58 mean of 72 ANATOMY: Left Main is free of obstructive disease Left Anterior Descending has 50 percent mid LAD stenosis nonobstructive disease Left Circumflex moderate in size, 50 percent mid disease nonobstructive disease Right Coronory Artery is dominant artery with no obstructive disease LV Gram was done in the right anterior oblique position left ventricular is normal in size, EF 50 percent CONCLUSION: 1. [id number] coronary artery disease, 50 percent proximal to mid LAD, 50 percent mid circumflex artery stenosis otherwise nonobstructive disease 2. Normal left ventricular size, EF 50 percent DISCUSSION AND RECOMMENDATION: Medical therapy is recommended, patient will be referred back for possible EP study Anesthesia Type: Conscious Sedation Estimated blood loss (mL): 5 ml Contrast Amount: 50 ml Total Radiation Dose: 627 mGy Post-Procedure Diagnosis Post-operative diagnosis: Ventricular tachycardia Coronary artery disease Syncope Hypertension NERY MATA MD Apr 08, 2020 15:09
== END 2020-04-08 17:10 | disposition home or self-care (01) ==
LOC: CATH 12:19
PROVIDERS: ATTEND Internal Medicine Cardiovascular Disease
DX: I47.2 Ventricular tachycardia (principal); I10 Essential (primary) hypertension; E11.9 Type 2 diabetes mellitus without complications; G47.33 Obstructive sleep apnea (adult) (pediatric); E78.2 Mixed hyperlipidemia; N40.0 Benign prostatic hyperplasia without lower urinary tract symptoms; M19.90 Unspecified osteoarthritis, unspecified site; E66.9 Obesity, unspecified; Z68.34 Body mass index [BMI] 34.0-34.9, adult; Z79.899 Other long term (current) drug therapy; Z88.8 Allergy status to other drugs, medicaments and biological substances; Z85.828 Personal history of other malignant neoplasm of skin; Z87.891 Personal history of nicotine dependence; Z80.9 Family history of malignant neoplasm, unspecified; Z82.3 Family history of stroke
CPT/HCPCS: 71045; 80053; 80061; 81000; 85027; 85610; 85730; 87081; 93005; 93458; C1894; 36415

== ENCOUNTER → 2020-06-10 | Outpatient (CLI) | payer BC, MEDICARE ==
[~2020-06-10] MED LIST changes: +CETI10TA49 PO; +MTP25TSR PO
== END ==
LOC: LABNPT 06:07
PROVIDERS: ATTEND Internal Medicine Cardiovascular Disease
DX: I47.2 Ventricular tachycardia (principal); Z20.822 Contact with and (suspected) exposure to COVID-19
CPT/HCPCS: 87635

== ENCOUNTER → 2020-07-17 | Outpatient (CLI) | payer BC, MEDICARE | LOC: CARD 08:30 | PROVIDERS: ATTEND Internal Medicine Cardiovascular Disease | DX: I11.9 Hypertensive heart disease without heart failure (principal); I34.0 Nonrheumatic mitral (valve) insufficiency | CPT/HCPCS: 93306 ==

== ENCOUNTER → 2020-07-21 | Outpatient (CLI) | payer BC, MEDICARE | LOC: LAB 18:24 | PROVIDERS: ATTEND Emergency Medicine | DX: Z01.812 Encounter for preprocedural laboratory examination (principal); Z20.822 Contact with and (suspected) exposure to COVID-19 | CPT/HCPCS: 87635 ==

== ENCOUNTER → 2020-08-05 | Outpatient (CLI) | payer BC, MEDICARE | LOC: LABNPT 09:49 | PROVIDERS: ATTEND Family Medicine | DX: Z53.9 Procedure and treatment not carried out, unspecified reason (principal) ==

== ENCOUNTER → 2020-10-12 | Outpatient (CLI) | payer BC, MEDICARE ==
[2020-10-12 17:59] LABS: TRIGLYCERIDES 70 MG/DL (<150); VLDL CHOLESTEROL 14 MG/DL (5-40)
[2020-10-12 18:04] LABS: CHOLESTEROL 149 MG/DL (< 200); HDL CHOLESTEROL 71 MG/DL (40-60)
== END ==
LOC: LAB 17:24
PROVIDERS: ATTEND Internal Medicine
DX: Z12.5 Encounter for screening for malignant neoplasm of prostate (principal); Z13.220 Encounter for screening for lipoid disorders
CPT/HCPCS: 36415; 80061; 84153

== ENCOUNTER → 2021-02-05 | Outpatient (CLI) | payer BC, MEDICARE | LOC: CARD 13:10 | PROVIDERS: ATTEND Internal Medicine Cardiovascular Disease | DX: I08.0 Rheumatic disorders of both mitral and aortic valves (principal); I47.2 Ventricular tachycardia | CPT/HCPCS: 93306 ==

== ENCOUNTER → 2021-05-24 | Outpatient (CLI) | payer BC, MEDICARE | LOC: LABNPT 02:10 | PROVIDERS: ATTEND Internal Medicine | DX: Z20.822 Contact with and (suspected) exposure to COVID-19 (principal) | CPT/HCPCS: 87635 ==

== ENCOUNTER → 2022-10-06 | Outpatient (CLI) | payer MEDICARE, OTHER | LOC: CARD 13:23 | PROVIDERS: ATTEND Internal Medicine Cardiovascular Disease | DX: I35.1 Nonrheumatic aortic (valve) insufficiency (principal); I11.9 Hypertensive heart disease without heart failure | CPT/HCPCS: 93306 ==

== ENCOUNTER → 2022-10-28 | Outpatient (CLI) | payer MEDICARE, OTHER ==
[2022-10-28 14:19] LABS: HEMATOCRIT 41 % (40-54); HEMOGLOBIN 14.3 g/dL (13.3-17.7); MEAN CORPUSCULAR HEMOGLOBIN 33 pg (25-34); MEAN CORPUSCULAR HGB CONC 35 g/dL (32-36); MEAN CORPUSCULAR VOLUME 96 fL (80-99); PLATELET COUNT 178 10^3/uL (130-400); WHITE BLOOD COUNT 5.9 10^3/uL (4.3-11.0)
[2022-10-28 14:39] LABS: BILIRUBIN,TOTAL 0.7 MG/DL (0.1-1.0); CREATININE SERUM 1.15 MG/DL (0.60-1.30); POTASSIUM 4.2 MMOL/L (3.6-5.0); TOTAL PROTEIN 6.6 GM/DL (6.4-8.2)
== END ==
LOC: LAB 14:09
PROVIDERS: ATTEND Internal Medicine Cardiovascular Disease
DX: I10 Essential (primary) hypertension (principal); I48.0 Paroxysmal atrial fibrillation; I47.20 Ventricular tachycardia, unspecified; E78.2 Mixed hyperlipidemia
CPT/HCPCS: 36415; 80053; 80061; 84443; 85027

== ENCOUNTER → 2023-02-23 | Outpatient (CLI) | payer MEDICARE, OTHER ==
[~2023-02-23] MED LIST changes: -CELE-63 PO; +CELE-91 PO; +FAMO-356 PO; -FAMO20TA3 PO
[2023-02-23 17:39] LABS: BASOPHILS % (AUTO) 1 % (0-10); EOSINOPHILS # (AUTO) 0.2 10^3/uL (0.0-0.3); EOSINOPHILS % (AUTO) 3 % (0-10); HEMATOCRIT 35 % (40-54); HEMOGLOBIN 11.9 g/dL (13.3-17.7); LYMPHOCYTES # (AUTO) 1.1 10^3/uL (1.0-4.0); LYMPHOCYTES % (AUTO) 16 % (12-44); MEAN CORPUSCULAR HEMOGLOBIN 33 pg (25-34); MEAN CORPUSCULAR HGB CONC 35 g/dL (32-36); MEAN CORPUSCULAR VOLUME 96 fL (80-99); MEAN PLATELET VOLUME 10.6 fL (9.0-12.2); MONOCYTES # (AUTO) 0.5 10^3/uL (0.0-1.0); MONOCYTES % (AUTO) 7 % (0-12); NEUTROPHILS # (AUTO) 4.8 10^3/uL (1.8-7.8); NEUTROPHILS % (AUTO) 73 % (42-75); PLATELET COUNT 152 10^3/uL (130-400); WHITE BLOOD COUNT 6.6 10^3/uL (4.3-11.0)
[2023-02-23 17:44] LABS: ALBUMIN 3.8 GM/DL (3.2-4.5)
[2023-02-23 17:45] LABS: POTASSIUM 3.9 MMOL/L (3.6-5.0)
[2023-02-23 17:46] LABS: CALCIUM 8.5 MG/DL (8.5-10.1)
[2023-02-23 17:47] LABS: TOTAL PROTEIN 6.2 GM/DL (6.4-8.2)
[2023-02-23 17:49] LABS: BILIRUBIN,TOTAL 0.6 MG/DL (0.1-1.0)
[2023-02-23 17:51] LABS: CREATININE SERUM 1.21 MG/DL (0.60-1.30)
[2023-02-23 18:16] LABS: ERYTHROCYTE SEDIMENTATION RATE 12 MM/HR (0-30)
== END ==
LOC: LAB 16:49
PROVIDERS: ATTEND Internal Medicine
DX: J84.9 Interstitial pulmonary disease, unspecified (principal); J67.9 Hypersensitivity pneumonitis due to unspecified organic dust
CPT/HCPCS: 36415; 80053; 82085; 82550; 82784; 83516; 83520; 85025; 85652; 86003; 86021; 86038; 86039; 86141; 86200; 86235; 86331; 86431; 86606